=== PATIENT | male | born 1990 | race Caucasian/White ===

== ENCOUNTER 2023-03-29 14:56 | Inpatient (IN) | payer OTHER, SELFPAY ==
[2023-03-29 15:43] VITALS: BP 142/96; PULSE 86; RESP 20; TEMP 37.4; O2SAT 98; BMI 31.7
--- NOTE | 2023-03-29 16:58 | ED.SKABFB ---
HPI - Skin/Abscess/Foreign Bdy General Chief complaint: Skin/Abscess/Foreign Body Stated complaint: Abcess in rectum Time Seen by Provider: 03/29/23 16:48 Source: patient Mode of arrival: Ambulatory Limitations: no limitations History of Present Illness HPI narrative: Patient is a 33-year-old male who was sent over from his primary clinic after having a CT scan performed yesterday which showed a perirectal abscess. Patient states he is had rectal pain for the past 6 days. He is never had symptoms like this in the past. Has had subjective fevers at home. States he is having some urinary symptoms. He was seen at primary doctor yesterday. Was sent for a CT scan. The CT scan subsequently resulted in a 3.7 x 4.0 x 5.1 cm fluid collection located just posterior to the rectum along the midline. Related Data Home Medications Medication Instructions Recorded Confirmed acetaminophen 325 mg tablet 650 mg PO Q6HR PRN Pain (Scale 03/29/23 03/29/23 Score 1-3) barium sulfate 2 % (w/v) oral 1 ml PO NOW 03/29/23 03/29/23 suspension (Readi-Cat 2) ibuprofen 800 mg tablet 800 mg PO PRN PRN Pain, Mild 03/29/23 03/29/23 lisinopril 40 mg tablet 40 mg PO DAILY 03/29/23 03/29/23 oxycodone 5 mg tablet 5 mg PO Q4H PRN Pain (Scale Score 03/29/23 03/29/23 7-10) Allergies Allergy/AdvReac Type Severity Reaction Status Date / Time No Known Drug Allergies Allergy Verified 03/29/23 17:30 Review of Systems Constitutional Constitutional: Reports system reviewed and no additional complaints, except as documented Gastrointestinal Gastrointestinal: Reports system reviewed and no additional complaints, except as documented Genitourinary Genitourinary: Reports system reviewed and no additional complaints, except as documented Integumentary/Breasts Skin/Breast: Reports system reviewed and no additional complaints, except as documented Patient History Social History household members: spouse and family Smoking Status: Never smoker alcohol intake: current Exam Initial Vital Signs Initial Vital Signs: Vital Signs Temperature 99.4 F 03/29/23 15:43 Pulse Rate 86 03/29/23 15:43 Respiratory Rate 20 03/29/23 15:43 Blood Pressure 142/96 H 03/29/23 15:43 Pulse Oximetry 98 03/29/23 15:43 Oxygen Delivery Method Room Air 03/29/23 15:43 [facility] Head: normal to inspection and normocephalic Resp Effort & Inspection: normal respiratory effort Cardio Rate: regular rate GI Inspection: non-distended Skin General: no rashes or lesions noted Course Orders Ordered: Sodium Chloride (Normal Saline 0.9%) 1,000 mls @ 125 mls/hr IV CONT [facility] Last Admin: 03/29/23 17:19 Dose: 125 mls/hr Documented By: ELIJAH Piperacillin Sod/Tazobactam (Sod 3.375 gm/ Sodium Chloride) 100 mls @ 25 mls/hr IV Q8H [facility] Morphine Sulfate (Morphine 2 Mg/Ml Inj) 2 mg IV Q4HR PRN PRN Reason: Pain, Mild (1-3) Last Admin: 03/29/23 17:15 Dose: 2 mg Documented By: ELIJAH Ondansetron HCl (Ondansetron 4 Mg/2 Ml Inj) 4 mg IV Q4HR PRN PRN Reason: Nausea And Vomiting Last Admin: 03/29/23 17:17 Dose: 4 mg Documented By: ELIJAH Discontinued Medications Piperacillin Sod/Tazobactam (Sod 4.5 gm/ Sodium Chloride) 100 mls @ 25 mls/hr IV Q8H [facility] Last Admin: 03/29/23 17:17 Dose: 25 mls/hr Documented By: ELIJAH Vital Signs Vital signs: Vital Signs - 8 hr 03/29/23 15:43 Temperature 99.4 F Pulse Rate 86 Respiratory Rate 20 Blood Pressure 142/96 H Pulse Oximetry 98 Oxygen Delivery Method Room Air MDM - Skin/Abscess/Foreign Bdy Lab Data 03/29/23 16:40 03/29/23 16:40 Labs: Lab Results 03/29/23 Range/Units 16:40 WBC 10.5 (4.5-11.0) X10^3/uL RBC 4.69 (4.5-5.9) X10^6/uL Hgb 13.4 L (13.5-17.5) g/dL Hct 38.3 L (41-53) % MCV 81.7 (80-100) fL MCH 28.5 (26-34) PG MCHC 34.9 (30-36) % RDW 12.9 (11.6-14.8) % Plt Count 260 (150-400) X10^3/uL Neut % (Auto) 65.1 (50-75) % Lymph % (Auto) 22.2 L (25-40) % [place] % (Auto) 9.3 (3-14) % Eos % (Auto) 2.8 (2-4) % Baso % (Auto) 0.6 (0-2) % Neut # (Auto) 6800 (2100-5114) /uL Lymph # (Auto) 2300 (7914-7095) /uL [place] # (Auto) 1000 H (0-900) /uL Eos # (Auto) 300 (0-450) /uL Baso # (Auto) 100 (0-100) /uL Sodium 139 (137-145) mmol/L Potassium 4.1 (3.4-5.1) mmol/L Chloride 104 (98-107) mmol/L Carbon Dioxide 29 (22-32) mmol/L BUN 16 (9-20) mg/dL Creatinine 1.10 (0.66-1.25) mg/dL Estimated GFR > 60 (>60) mL/min BUN/Creatinine Ratio 14.5 (6-22) Glucose 92 (70-100) mg/dL Calcium 9.5 (8.4-10.2) mg/dL MDM Narrative Medical decision making narrative: I did discuss the case with Dr. Caballero on-call with General surgery who stated that the patient did not need any further imaging here in the ER. Labs were drawn. Started on antibiotics. We will admit for further evaluation and treatment. Patient already knows of the diagnosis. We did discuss the need for admission. Discharge Plan Departure Patient Disposition: Admitted As Inpatient Clinical Impression: Abscess, perirectal Admit Date/Time: 03/29/23 16:58 Admit Provider: Joselyn Caballero
[2023-03-29] MEDS: MORPHINE 2 MG/ML INJ IV ×2 (17:15→23:28)
[2023-03-29 17:16] LABS: Add Manual Diff / Slide Review NO; Basophils Absolute Auto 100 /uL (0-100); Basophils Percent Auto 0.6 % (0-2); Eosinophils Absolute Auto 300 /uL (0-450); Eosinophils Percent Auto 2.8 % (2-4); Hematocrit 38.3 % (41-53); Hemoglobin 13.4 g/dL (13.5-17.5); Lymphocytes Absolute Auto 2300 /uL (1100-4500); Lymphocytes Percent Auto 22.2 % (25-40); Mean Corpuscular HGB Conc 34.9 % (30-36); Mean Corpuscular Hemoglobin 28.5 PG (26-34); Mean Corpuscular Volume 81.7 fL (80-100); Monocytes Absolute Auto 1000 /uL (0-900); Monocytes Percent Auto 9.3 % (3-14); Neutrophils Absolute Auto 6800 /uL (1500-7000); Neutrophils Percent Auto 65.1 % (50-75); Platelet Count 260 X10^3/uL (150-400); Red Blood Cell Count 4.69 X10^6/uL (4.5-5.9); Red Cell Distribution Width 12.9 % (11.6-14.8); White Blood Cell Count 10.5 X10^3/uL (4.5-11.0)
[2023-03-29 17:17] LABS: BUN Creatinine Ratio 14.5 (6-22); Blood Urea Nitrogen 16 mg/dL (9-20); Calcium 9.5 mg/dL (8.4-10.2); Carbon Dioxide 29 mmol/L (22-32); Chloride 104 mmol/L (98-107); Estimated Glomerular Filt Rate > 60 mL/min (>60); Glucose 92 mg/dL (70-100); HEMOLYSIS < 15 (0-50); Potassium 4.1 mmol/L (3.4-5.1); Sodium 139 mmol/L (137-145)
[2023-03-29] MEDS: ONDANSETRON 4 MG/2 ML INJ IV (17:17)
[2023-03-29] MEDS: PIPERACILLIN/TAZO 4.5 GM in SODIUM CHLORIDE 0.9% 100 ML IV (17:17)
[2023-03-29] MEDS: SODIUM CHLORIDE 0.9% 1,000 ML 125 ML IV (17:19)
[2023-03-29 17:26] VITALS: PULSE 78; O2SAT 99
[2023-03-29 17:30] VITALS: PULSE 82; O2SAT 99
[2023-03-29 17:32] VITALS: BP 133/84; PULSE 87; O2SAT 99
[2023-03-29 17:50] VITALS: BP 138/83; PULSE 66; RESP 16; TEMP 37; O2SAT 99
[2023-03-29 18:03] VITALS: BMI 31.7
[2023-03-29] MEDS: OXYCODONE IR 5 MG TABLET PO (19:54)
[2023-03-29 20:15] VITALS: BP 134/81; PULSE 84; RESP 16; TEMP 36.9; O2SAT 98
[2023-03-30] VITALS (11 sets, daily range): BP systolic 111–146; BP diastolic 70–90; PULSE 73–99; RESP 12–20; TEMP 36.5–38.4; O2SAT 92–97; BMI 31.7
[2023-03-30] MEDS: SODIUM CHLORIDE 0.9% 1,000 ML 125 ML IV (01:10)
[2023-03-30] MEDS: PIPERACILLIN/TAZO 3.375 GM in SODIUM CHLORIDE 0.9% 100 ML IV (02:09)
[2023-03-30] MEDS: OXYCODONE IR 5 MG TABLET PO ×5 (02:11→18:03)
[2023-03-30] MEDS: MORPHINE 2 MG/ML INJ IV ×5 (03:35→18:02)
--- NOTE | 2023-03-30 11:00 | PM.HP.1 ---
History of Present Illness History of Present Illness Date Patient Seen: 03/30/23 Time Patient Seen: 11:00 Chief complaint: Abcess in rectum Narrative: Several days of rectal discomfort. 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 [facility] Social History household members: spouse and family Smoking Status: Never smoker alcohol intake: current Meds Home Medications and Allergies Home Medications Medication Instructions Recorded Confirmed Type acetaminophen 325 mg tablet 650 mg PO Q6HR PRN Pain (Scale 03/29/23 03/29/23 History Score 1-3) barium sulfate 2 % (w/v) oral 1 ml PO NOW 03/29/23 03/29/23 History suspension (Readi-Cat 2) ibuprofen 800 mg tablet 800 mg PO PRN PRN Pain, Mild 03/29/23 03/29/23 History lisinopril 40 mg tablet 40 mg PO DAILY 03/29/23 03/29/23 History oxycodone 5 mg tablet 5 mg PO Q4H PRN Pain (Scale Score 03/29/23 03/29/23 History 7-10) Allergies Allergy/AdvReac Type Severity Reaction Status Date / Time No Known Drug Allergies Allergy Verified 03/29/23 17:30 Review of Systems Review of Systems ROS: Yes All systems reviewed with the patient and are negative except as otherwise documented Exam Vital Signs (past 8 hours): - 03/30/23 07:57 Temperature 99.9 F H Pulse Rate 73 Respiratory Rate 18 Blood Pressure 146/83 H Pulse Oximetry 93 Oxygen Flow Rate 0 Oxygen Delivery Method Room Air Oxygen Flow Rate 0 Narrative Exam Narrative: Several days of shima rectal pain, seen [facility] with CT and clinical findings of perirectal abscess. No previous episodes. No N/V Const General: cooperative and healthy appearing [facility] Head: normocephalic and atraumatic Ears: hearing grossly normal bilaterally Eyes Conjunctivae: normal conjunctivae Sclera: normal sclerae Neck Neck: no meningeal signs and trachea midline Resp Effort & Inspection: normal respiratory effort and able to speak in complete sentences Cardio Rate: regular rate Rhythm: regular rhythm GI Palpation: soft and No tender Skin General: elasticity normal and turgor normal Neuro General: patient alert, patient awake and patient oriented x3 Psych Appearance: grossly normal Mental Status: mental status grossly normal Judgment: judgment good Objective Labs 03/29/23 16:40 03/29/23 16:40 Labs: Laboratory Results - last 24 hr 03/29/23 16:40 WBC 10.5 RBC 4.69 Hgb 13.4 L Hct 38.3 L MCV 81.7 MCH 28.5 MCHC 34.9 RDW 12.9 Plt Count 260 Neut % (Auto) 65.1 Lymph % (Auto) 22.2 L [place] % (Auto) 9.3 Eos % (Auto) 2.8 Baso % (Auto) 0.6 Neut # (Auto) 6800 Lymph # (Auto) 2300 [place] # (Auto) 1000 H Eos # (Auto) 300 Baso # (Auto) 100 Sodium 139 Potassium 4.1 Chloride 104 Carbon Dioxide 29 BUN 16 Creatinine 1.10 Estimated GFR > 60 BUN/Creatinine Ratio 14.5 Glucose 92 Calcium 9.5 Assessment & Plan Assessment & Plan narrative: Perirectal abscess OR for I and D of perirectal abscess. Time Spent With Patient Time with patient: less than 30 minutes Quality VTE Deep Vein Thrombosis/Pulmonary Embolism Present on Admission: No
--- NOTE | 2023-03-30 11:15 | PC.NURSE ---
Patient received this a.m. lying in bed, VSS, afebrile(low grade temp 99.3) patient reports pain in rectal region significantly high,especially with ambulating. MD Caballero notified of plan for surgery this a.m. and in RN informed of pain unrelieved with 2mg morphine IV this a.m. Per orders repeat dose 2mg IV Morphine ordered and changed to q 2 hour PRN. He has remained NPO. Removed jewelry. He reports discomfort with urinating and feeling like he is unable to fully empty his bladder as if there is pressure on it. He is escorted by [facility] RN at approximately 1100 a.m. to surgery via bed. is supportive at bedside.
[2023-03-30] MEDS: LACTATED RINGERS 1,000 ML 42 ML IV (11:22)
--- NOTE | 2023-03-30 11:38 | SUR.OPER ---
Lithotomy on padded OR bed, head on pillow, arms secured on padded arm boards at <90 degrees abduction. Legs secured in padded yellow fins stirrups.
[2023-03-30] MEDS: BUPIVACAINE 0.25% W/ EPI 30 ML VIAL 10 ML INJ (11:40)
--- NOTE | 2023-03-30 11:47 | PM.OP.1 ---
Operative Date/Time/Diagnoses Date of procedure: 03/30/23 Time of procedure: 11:47 Pre-op diagnosis: Perirectal abscess Post-op diagnosis: same Procedure & Clinicians Procedure: Transanal incision and drainage of perirectal abscess Same procedure as scheduled: Yes Indications: Perirectal abscess Surgeon: Joselyn Caballero Click Yes if Unassisted: Yes Anesthesia Type: General and Local Operative Notes Findings: Perirectal abscess at the 6 to 8 o'clock position Closure Type: not applicable Specimen(s): none sent Estimated Blood Loss (mL): 20 Blood products transfused: none Procedure in detail: Preop diagnosis: Perirectal abscess Postop diagnosis: Same Operative procedure: Transanal incision and drainage of perirectal abscess Surgeon: Ne Caballero MD Findings: Palpable bulge in the right lower quadrant of the rectum. Incision relieved bulge and produced purulent drainage of the proximally 40 cc Procedure: Patient placed in a lithotomy position. Local anesthetic was used. Rectal exam was performed along with a speculum exam. I then took a 15 blade through the speculum was able to incise transanal in the area of bulge and relieved the abscess producing pus drainage. Peripad was placed. Patient was awakened, extubated, taken to recovery room in stable condition. Needle, instrument, sponge counts were correct. Blood loss: 20 mL Specimen: None Complications: none Post-operative Condition: stable Disposition: PACU
[2023-03-30] MEDS: AMOXICILLIN/CLAV 875/125 MG 1 TAB PO (13:18)
[2023-03-30] MEDS: CELECOXIB 200 MG CAPSULE PO (13:21)
--- NOTE | 2023-03-30 14:11 | CM.DANOTE ---
DCP Assessment Note Patient is a 33yo M here following abscess in rectum. I&D of perirectal abcess with Dr. Caballero on 03.30.23. PCP [facility] [employer] Payer Omid diop and self pay PELLETIZER OPERATOR reviewed EMR. PELLETIZER OPERATOR entered room and introduced self and role. Patient resting in bed. Patient lives in [place] with Beth ([phone]), 2yr old son, and MIL in the house with dementia. Patient works security at [employer]. Drives/IADLs at baseline. Patient reports no needs from CM team at this time. Patient reported being uncomfortable and groaned in pain throughout interaction. From RN, patient may either d/c today or tomorrow. RN notified to patient's reported discomfort. Plan: likely home with spouse when medically stable, transport with spouse in POV. No needs identified at this time. CM team will continue to follow as needed. BURT Hagen Discharge Planning/Care Management CM Discharge Assessment Start: 03/30/23 14:09 Freq: Status: Active Protocol: Document 03/30/23 14:09 (Rec: 03/30/23 14:11 [id number]) Discharge Planning Assessment Assigned Mining Consultant BURT Rothman DPOA/Assigned Designee Name Beth Moreno (spouse) Contact Information [phone] Advance Directives? No History Provided By Patient,Medical Record Prior Living Arrangements House Household Members spouse,family Type of transporation used prior to Drives own vehicle admit Independent with ADL's Yes Is patient alert and oriented? Yes Barriers to Discharge No Discharge Plan Home Transportation Arrangement in POV Referrals Initiated None needed Whiteboard Updated in Patient Room with Yes name and ext. # of Mining Consultant Review Status In Process Next Review Type Continued Stay Review
--- NOTE | 2023-03-30 18:59 | PC.NURSE ---
patient A&OX4, VSS, low grade temp 99.3 this afternoon on RA. Pain is significantly improved and patient is able to tolerate dinner, able to ambulate to void. Minimal drainage to shima pad. He is cleared for discharge home this evening with . and patient both verbalize understanding of medications, activity, s/sx of infection- to return to ED if temp 101.5. Patient and acknowledge understanding to call MD Caballero's office Sunday a.m. to schedule follow up appointment in two weeks. He is escorted via w/ch with all of his belongings this evening to private vehicle with for discharge home at 1830.
== END 2023-03-30 18:30 | disposition home or self-care (01) | DRG 346 ==
LOC: ED 16:59 → AC 17:00
PROVIDERS: Admitting Provider Surgery; Emergency Provider Emergency Medicine; Referring Provider Emergency Medicine; Visit Provider Surgery
PROC: 0D9P0ZX Drainage of Rectum, Open Approach, Diagnostic (ICD-10-PCS; CPT 46040; principal; 2023-03-30 11:15)
DX: K61.1 Rectal abscess (principal)
CPT/HCPCS: 36415; 46040; 80048; 85025; 96374; 96375; 99232; 99283; 99284; J1100; J2250; J2270; J2405; J2543; J2704; J3010

== ENCOUNTER 2023-04-01 16:07 | Observation (INO) | payer OTHER, SELFPAY ==
[2023-04-01 16:11] VITALS: BMI 31.1
--- NOTE | 2023-04-01 16:28 | PC.NURSE ---
admit pt to AC direct admit to room 209 at 1615. Pt ambulated to room with steady gait. CC increased rectal pain and states feels like it's filling up and getting hard again (abcess). Pt able to independently change into hospital gown. Supportive family at bedside. Admit complete and awaiting 's orders.
[2023-04-01 16:29] VITALS: BP 138/78; PULSE 72; RESP 18; TEMP 36.6; O2SAT 97
[2023-04-01 16:55] VITALS: O2SAT 98
[2023-04-01] MEDS: MORPHINE 4 MG/ML INJ IV ×2 (17:16→19:51)
[2023-04-01] MEDS: ACETAMINOPHEN 325 MG TABLET 650 MG PO ×2 (17:23→22:32)
[2023-04-01] MEDS: GABAPENTIN 300 MG CAPSULE PO (17:26)
[2023-04-01] MEDS: SODIUM CHLORIDE 0.9% 1,000 ML 100 ML IV (17:26)
[2023-04-01] MEDS: SCOPOLAMINE 1 PATCH TOP (17:26)
[2023-04-01 17:30] LABS: Add Manual Diff / Slide Review NO; Basophils Absolute Auto 100 /uL (0-100); Basophils Percent Auto 0.7 % (0-2); Eosinophils Absolute Auto 500 /uL (0-450); Eosinophils Percent Auto 4.6 % (2-4); Hematocrit 37.7 % (41-53); Hemoglobin 13.3 g/dL (13.5-17.5); Lymphocytes Absolute Auto 1800 /uL (1100-4500); Lymphocytes Percent Auto 17.4 % (25-40); Mean Corpuscular HGB Conc 35.2 % (30-36); Mean Corpuscular Hemoglobin 28.5 PG (26-34); Mean Corpuscular Volume 81.2 fL (80-100); Monocytes Absolute Auto 900 /uL (0-900); Neutrophils Absolute Auto 7100 /uL (1500-7000); Neutrophils Percent Auto 68.3 % (50-75); Platelet Count 279 X10^3/uL (150-400); Red Blood Cell Count 4.64 X10^6/uL (4.5-5.9); Red Cell Distribution Width 13.1 % (11.6-14.8); White Blood Cell Count 10.4 X10^3/uL (4.5-11.0)
--- NOTE | 2023-04-01 18:54 | PC.NURSE ---
new admit: [address] Caballero patient. a/o, voices needs. ind w/ mobility and ADLs. increased pain to rectal area, had an abscess recently drained and was a patient here and was d/c'd home on sunday. returned this evening after increased pain and discomfort. he took a hot bath earlier in the day and this inflamed his previously drained area and pain was increased-- strongly encouraged him to apply the ice pack, which he did. pain improved a little bit. NPO at midnight, tolerated dinner and fluids are available at bedside. no drainage to rectal area, per patient it was all internal and no drainage, no dressing. plan for procedure tomorrow. valery and son present in the room. white board updated w/ her info. NS at 100/hour. CTM , report to ROLLY Gilliland RN.
[2023-04-01] MEDS: OXYCODONE IR 10 MG TABLET PO (19:50)
[2023-04-01] MEDS: PIPERACILLIN/TAZO 3.375 GM in SODIUM CHLORIDE 0.9% 100 ML IV (19:56)
[2023-04-01 19:58] LABS: Alanine Aminotransferase 68 IU/L (<50); Albumin 3.8 g/dL (3.5-5.0); Albumin Globulin Ratio 1.1 (1.0-2.8); Alkaline Phosphatase 60 U/L (38-126); Aspartate Aminotransferase 40 IU/L (17-59); BUN Creatinine Ratio 17.6 (6-22); Bilirubin Total 0.9 mg/dL (0.2-1.3); Blood Urea Nitrogen 16 mg/dL (9-20); Calcium 9.6 mg/dL (8.4-10.2); Carbon Dioxide 24 mmol/L (22-32); Chloride 105 mmol/L (98-107); Estimated Glomerular Filt Rate > 60 mL/min (>60); Globulin 3.5 g/dL (1.7-4.1); Glucose 100 mg/dL (70-100); HEMOLYSIS 33 (0-50); Potassium 4.1 mmol/L (3.4-5.1); Sodium 138 mmol/L (137-145); Total Protein 7.3 g/dL (6.3-8.2)
[2023-04-01 20:11] VITALS: BP 154/86; PULSE 120; RESP 18; TEMP 38.3; O2SAT 96
[2023-04-01 20:11] LABS: Add Manual Diff / Slide Review NO; Basophils Absolute Auto 0 /uL (0-100); Basophils Percent Auto 0.7 % (0-2); Eosinophils Absolute Auto 200 /uL (0-450); Hematocrit 38.5 % (41-53); Hemoglobin 13.4 g/dL (13.5-17.5); Lymphocytes Absolute Auto 800 /uL (1100-4500); Lymphocytes Percent Auto 22.1 % (25-40); Mean Corpuscular HGB Conc 34.9 % (30-36); Mean Corpuscular Hemoglobin 28.7 PG (26-34); Mean Corpuscular Volume 82.4 fL (80-100); Monocytes Absolute Auto 0 /uL (0-900); Neutrophils Absolute Auto 2700 /uL (1500-7000); Neutrophils Percent Auto 71.2 % (50-75); Platelet Count 221 X10^3/uL (150-400); Red Blood Cell Count 4.68 X10^6/uL (4.5-5.9); Red Cell Distribution Width 13.1 % (11.6-14.8); White Blood Cell Count 3.8 X10^3/uL (4.5-11.0)
[2023-04-01] MEDS: CELECOXIB 200 MG CAPSULE PO (20:16)
[2023-04-01 20:36] VITALS: BP 144/80; PULSE 123; RESP 18; O2SAT 96
[2023-04-01] MEDS: SODIUM CHLORIDE 0.9% 1,000 ML 150 ML IV (21:23)
[2023-04-01 22:32] VITALS: TEMP 37
[2023-04-01 23:22] VITALS: TEMP 36.9
--- NOTE | 2023-04-01 23:39 | PC.NURSE ---
Addendum entered by Darshana Wilkins R.N. 04/02/23 02:24: 0220 update: Patient voided 700cc clear yellow urine. Addendum entered by Darshana Wilkins R.N. 04/02/23 00:21: 0000 update: Patient OOB w/ assistance to attempt to urinate w/ no success. Patient requesting to not place indwelling catheter as of right now and will continue trying to urinate. Will continue to monitor. Original Note: Found patient to be shivering @ approximately 1930. Oral temp was 101.0, HR 122, respirations 24, O2 sats in the mid 80's on RA, BP 160/90. Patient placed on cardiac monitoring & 3L [place], O2 sats up to 97%. Patient denied chest pain or nausea, stated that he just felt cold. Notified MD Caballero, orders were given to increase NS rate to 150cc/hr, give 2 mg IV Morphine, and 10mg Oxycodone. IV abx started & pain medications given as ordered, 15 minutes later patient stated that his pain had improved and stopped shivering. 2300 update: Patient has not peed since prior to arrival to the hospital, patient ambulated in the room and attempted to urinate twice w/ no success. MD Caballero notified, indwelling catheter orders obtained. Patient requested to wait another 30min to keep trying to urinate. Will continue to monitor.
[2023-04-02] VITALS (15 sets, daily range): BP systolic 114–134; BP diastolic 63–86; PULSE 75–103; RESP 14–22; TEMP 35.6–37.6; O2SAT 91–98; BMI 31.7
[2023-04-02] MEDS: OXYCODONE IR 10 MG TABLET PO ×3 (00:11→14:28)
[2023-04-02] MEDS: SODIUM CHLORIDE 0.9% 1,000 ML 150 ML IV ×3 (01:02→12:28)
[2023-04-02] MEDS: MORPHINE 4 MG/ML INJ IV (02:25)
[2023-04-02] MEDS: PIPERACILLIN/TAZO 3.375 GM in SODIUM CHLORIDE 0.9% 100 ML IV ×2 (03:45→12:24)
[2023-04-02] MEDS: ACETAMINOPHEN 325 MG TABLET 650 MG PO ×2 (04:03→12:24)
[2023-04-02] MEDS: CELECOXIB 200 MG CAPSULE PO (08:00)
--- NOTE | 2023-04-02 09:13 | CM.DANOTE ---
DCP: Case received, EMR reviewed and met with patient. Introduced self and role. Was able to obtain some information from patient. DCP assessment completed with information currently available. Patient is a 33 year old male who admitted yesterday afternoon to the care of the surgical team (Dr. Caballero), direct admit. PCP: KESH[facility]. Payer: confimed: [employer]. Patient came to the hospital via private vehicle directly admitted up to the acute care floor. H&P pending, but notes indicate that patient was admitted rfor rectal abscess. Patient had been here recently, on 03-30 for the same issue, and was discharged home. Patient indicated, the pain had gotten worse, he called, and surgery office informed patient to come upstairs. Awaiting surgery consult from Dr. Caballero to see if he will go to surgery for I&D. Met briefly with patient in his room. He was laying in pain, complaining of rectal discomfort. 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 [place]. Confirmed with him that he sees the providers at the [facility]. P: DCP to continue to follow. Patient will see surgeon for possible surgery. Plan is home when deemed medically stable. Sissy Rendon RN/Geospatial Program Management Officer Discharge Planning/Care Management CM Discharge Assessment Start: 04/02/23 09:11 Freq: Status: Active Protocol: Document 04/02/23 09:11 (Rec: 04/02/23 09:12 [id number]) Discharge Planning Assessment Assigned Eyeletter Sissy Rendon RN/Geospatial Program Management Officer Advance Directives? No History Provided By Patient,Medical Record Prior Living Arrangements House Household Members spouse,family Type of transporation used prior to Drives own vehicle admit Independent with ADL's Yes Is patient alert and oriented? Yes Caregiver for Another Yes: Has a 2 year old son Clinicals Faxed No Barriers to Discharge No Discharge Plan Home Transportation Arrangement in POV Referrals Initiated None needed Whiteboard Updated in Patient Room with Yes name and ext. # of Eyeletter Review Status In Process Next Review Type Continued Stay Review
[2023-04-02] MEDS: LACTATED RINGERS 1,000 ML 42 ML IV (10:10)
--- NOTE | 2023-04-02 10:24 | SUR.OPER ---
Lithotomy on padded OR bed, head on pillow, arms secured on padded arm boards at <90 degrees abduction. Legs secured in padded yellow fins stirrups.
--- NOTE | 2023-04-02 10:31 | PM.HP.1 ---
History of Present Illness History of Present Illness Date Patient Seen: 04/02/23 Time Patient Seen: 10:31 Chief complaint: DIRECT ADMIT Narrative: Recurrent rectal pain, likely hematoma or undrained perirectal abscess. Started Sunday night. Low grade temp here, WBC WNL. Sharp rectal pain, no drainage. [facility] Social History household members: spouse and family Smoking Status: Former smoker alcohol intake: former Meds Home Medications and Allergies Home Medications Medication Instructions Recorded Confirmed Type acetaminophen 325 mg tablet 650 mg PO Q6HR PRN Pain (Scale 03/29/23 04/01/23 History Score 1-3) barium sulfate 2 % (w/v) oral 1 ml PO NOW 03/29/23 04/01/23 History suspension (Readi-Cat 2) ibuprofen 800 mg tablet 800 mg PO PRN PRN Pain, Mild 03/29/23 04/01/23 History lisinopril 40 mg tablet 40 mg PO DAILY 03/29/23 04/01/23 History oxycodone 5 mg tablet 5 mg PO Q4H PRN Pain (Scale Score 03/29/23 04/01/23 History 7-10) amoxicillin 875 mg-potassium 1 tab PO BID 7 days #14 tabs 03/30/23 04/01/23 Rx clavulanate 125 mg tablet celecoxib 200 mg capsule (Celebrex) 200 mg PO BID 10 days #20 caps 03/30/23 04/01/23 Rx oxycodone 10 mg tablet 10 mg PO Q6H PRN pain #14 tabs 03/30/23 04/01/23 Rx oxycodone 5 mg tablet 5 mg PO Q6-12H PRN Pain, Moderate 03/30/23 04/01/23 Rx (4-6) 5 days #15 tabs Allergies Allergy/AdvReac Type Severity Reaction Status Date / Time No Known Drug Allergies Allergy Verified 04/02/23 09:58 Review of Systems Review of Systems ROS: Yes All systems reviewed with the patient and are negative except as otherwise documented Exam Vital Signs (past 8 hours): - 04/02/23 03:47 04/02/23 08:00 04/02/23 09:58 Temperature 98.7 F 98.1 F 99.7 F H Pulse Rate 75 75 83 Respiratory Rate 16 18 16 Blood Pressure 122/86 123/63 132/86 Pulse Oximetry 98 98 97 Oxygen Delivery Method Room Air Oxygen Flow Rate 0 0 Oxygen Delivery Method Room Air Oxygen Flow Rate 0 Const General: cooperative, healthy appearing and comfortable [facility] Head: normocephalic and atraumatic Eyes General: appearance normal, both eyes and all related structures Sclera: normal sclerae Neck Neck: trachea midline Resp Effort & Inspection: normal respiratory effort and able to speak in complete sentences Cardio Rate: tachycardic Rhythm: regular rhythm GI Palpation: soft and No tender Skin General: elasticity normal and turgor normal Neuro General: patient alert, patient awake and patient oriented x3 Speech: speech normal Psych Appearance: grossly normal Mental Status: mental status grossly normal Affect: normal affect Judgment: judgment good Objective Labs 04/01/23 Unknown 04/01/23 19:17 Labs: Laboratory Results - last 24 hr 04/01/23 04/01/23 04/01/23 19:17 19:57 Unknown WBC 3.8 L D 10.4 RBC 4.68 4.64 Hgb 13.4 L 13.3 L Hct 38.5 L 37.7 L MCV 82.4 81.2 MCH 28.7 28.5 MCHC 34.9 35.2 RDW 13.1 13.1 Plt Count 221 279 Neut % (Auto) 71.2 68.3 Lymph % (Auto) 22.1 L 17.4 L [place] % (Auto) 1.0 L 9.0 Eos % (Auto) 5.0 H 4.6 H Baso % (Auto) 0.7 0.7 Neut # (Auto) 2700 7100 H Lymph # (Auto) 800 L 1800 [place] # (Auto) 0 900 Eos # (Auto) 200 500 H Baso # (Auto) 0 100 Sodium 138 Potassium 4.1 Chloride 105 Carbon Dioxide 24 BUN 16 Creatinine 0.91 Estimated GFR > 60 BUN/Creatinine Ratio 17.6 Glucose 100 Calcium 9.6 Total Bilirubin 0.9 AST 40 ALT 68 H Alkaline Phosphatase 60 Total Protein 7.3 Albumin 3.8 Globulin 3.5 Albumin/Globulin Ratio 1.1 Assessment & Plan Assessment & Plan narrative: Perirectal abscess vs hematoma Plan: EUA with external incision and drainage. COVID-19 COVID-19 status: Negative Time Spent With Patient Time with patient: less than 30 minutes Quality VTE Deep Vein Thrombosis/Pulmonary Embolism Present on Admission: No
[2023-04-02] MEDS: BUPIVACAINE 0.25% (PF) 30 ML, EPINEPHrine 0.15 MG INJ (10:56)
--- NOTE | 2023-04-02 11:01 | PM.OP.1 ---
Operative Date/Time/Diagnoses Date of procedure: 04/02/23 Time of procedure: 11:01 Pre-op diagnosis: Perirectal abscess Post-op diagnosis: same Procedure & Clinicians Procedure: Incision and drainage of perirectal abscess Same procedure as scheduled: Yes Indications: Perirectal abscess Surgeon: Joselyn Caballero Click Yes if Unassisted: Yes Anesthesia Type: General and Local Operative Notes Findings: Small hematoma from the attempted transanal drainage along with a 2nd abscess cavity tracking along side the rectum. Closure Type: not applicable Specimen(s): none sent Applied: drain(s) (Quarter-inch Yonathan drain) Estimated Blood Loss (mL): 30 Blood products transfused: none Procedure in detail: Preop diagnosis: Perirectal abscess. Postop diagnosis: Same Procedure: I and D of perirectal abscess Surgeon: Ne Caballero MD Findings: Inadequate drainage of perirectal abscess transanally. Abscess cavity right lateral a distance cephalad along the rectum. Procedure: Patient placed in lithotomy position. Prepped and draped in sterile fashion. 0.25% Marcaine with epinephrine was used for local anesthetic. I then incised in a radial fashion at the 7 o'clock position. With a tonsil and then followed by digital exam I was able to release undrained pus along with old blood from the previous drainage. Quarter-inch [place] drain was then placed into the abscess cavity and brought out through the incision. Sutured to the skin with a 2-0 silk. Patient was awakened, extubated, taken to recovery room in stable condition. Needle, instrument, sponge counts were correct. Specimen: None Blood loss: 30 mL Complications: none Post-operative Condition: stable Disposition: Acute Care
--- NOTE | 2023-05-04 18:15 | PC.NURSE ---
Late Entry: 4mg IV Morphine was taken out of pyxis at 0932 and administered @ 0937 to pt prior to OR team prepping pt for sx. Med did not scan.
== END 2023-04-02 16:25 | disposition home or self-care (01) ==
PROVIDERS: Admitting Provider Surgery; Referring Provider Surgery; Visit Provider Surgery
PROC: (CPT 46040; principal; 2023-04-02 13:30)
DX: K61.1 Rectal abscess (principal); K64.5 Perianal venous thrombosis
CPT/HCPCS: 45005; 36415; 80053; 85025; 96365; 96366; 96375; 96376; G0378; G0379; J0171; J1100; J2250; J2270; J2405; J2543; J2704; J3010

== ENCOUNTER 2023-04-18 09:52 | Day surgery (SDC) | payer OTHER, SELFPAY ==
[2023-04-16 14:39] VITALS: BMI 31.1
[2023-04-17 07:40] VITALS: BMI 31.7
[2023-04-18 10:17] VITALS: BP 144/87; PULSE 75; RESP 16; TEMP 36.6; O2SAT 98; BMI 31.7
[2023-04-18] MEDS: LACTATED RINGERS 1,000 ML 21 ML IV (10:34)
[2023-04-18] MEDS: ACETAMINOPHEN 325 MG TABLET 975 MG PO (10:34)
[2023-04-18 10:39] VITALS: BMI 31.7
--- NOTE | 2023-04-18 10:49 | PM.PREOP ---
Pre-operative Note Interval Note History & Physical reviewed/Exam performed by Physician: Yes Changes to H&P: No H&P completed within 30 days and has changed as indicated here:: 33 M with drainage of perirectal abscess x 2 with another abscess or fistula. Plan -Rectal examination under anesthesia with possible incision and drainage possible fistulotomy -Operative risks including reoccurrence, hemorrhage, incontinence discussed. Questions have been answered and he provides written and verbal consent to proceed,
--- NOTE | 2023-04-18 11:17 | SUR.OPER ---
Lithotomy on padded OR bed, head on pillow, arms secured on padded arm boards at <90 degrees abduction. Legs secured in padded yellow fins stirrups.
[2023-04-18] MEDS: BUPIVACAINE 0.25% (PF) VIAL 30 ML INJ (11:21)
[2023-04-18 11:31] VITALS: BP 115/59; PULSE 95; RESP 19; TEMP 36.1; O2SAT 95
[2023-04-18 11:35] VITALS: BP 121/76; PULSE 89; RESP 15; O2SAT 96
[2023-04-18 11:40] VITALS: BP 120/76; PULSE 88; RESP 18; O2SAT 96
[2023-04-18 11:45] VITALS: BP 122/85; PULSE 81; RESP 13; O2SAT 97
[2023-04-18 11:52] VITALS: BP 123/81; PULSE 82; RESP 12; TEMP 36.3; O2SAT 96
--- NOTE | 2023-04-18 12:00 | P.OP_ITS ---
Operative Date/Time/Diagnoses Date of procedure: 04/18/23 Time of procedure: 12:00 Pre-op diagnosis: Perianal abscess Post-op diagnosis: other (Perirectal hematoma) Procedure & Clinicians Procedure: Incision and drainage of perirectal abscess Same procedure as scheduled: Yes Indications: 33-year-old man underwent to recent incision and drainage procedures for perirectal abscess here for rectal examination under anesthesia. Surgeon: Doug Phillips Anesthesia Type: General Operative Notes Findings: Previous incision at 8 noted. Area of fluctuance is at 6 o'clock and drainage is hematoma Specimen(s): none sent Procedure in detail: Patient was brought to the operating room placed supine on the table. Bilateral lower extremity compression devices were applied. General anesthesia was induced and he was intubated with an endotracheal tube. He was then prepped and draped in sterile fashion after being placed appropriately into lithotomy p osition. Time-out performed. External examination demonstrated the presence of a prior incision at approximately the 8 o'clock position there was no drainage from this area. The area of fluctuance was shima anal and at the 6 o'clock position. A cruciate incision was made over the area of maximal fluctuance and there was spontaneous drainage of hematoma. The wound was evacuated was thoroughly irrigated. Internal examination demonstrated no other areas of fluctuance no evidence of perirectal fistula. Patient was extubated and returned to recovery in stable condition Complications: none Post-operative Condition: stable Disposition: same day surgery
[2023-04-18] MEDS: OXYCODONE IR 5 MG TABLET PO (12:01)
== END 2023-04-18 12:12 | disposition home or self-care (01) ==
PROVIDERS: Referring Provider Surgery; Visit Provider Surgery
PROC: (CPT 46040; principal; 2023-04-18 11:15)
DX: K91.870 Postprocedural hematoma of a digestive system organ or structure following a digestive system procedure (principal)
CPT/HCPCS: 10140; J1100; J1885; J2405; J2704; J3010